=== PATIENT | male | born 2000 | race Caucasian/White ===

== ENCOUNTER 2022-02-11 13:08 | Emergency (ER) | payer MEDICAID ==
[2022-02-11] MEDS ORDERED: Sodium Chloride 0.9% 1000 ML 1,000 ML IV STA ×2 (13:38→14:46)
[2022-02-11] MEDS ORDERED: Zofran 4 MG/2 ML VIAL IV ONE (13:38)
[2022-02-11] MEDS ORDERED: Zofran 4 MG/2 ML VIAL ONE (13:41)
[2022-02-11] MEDS ORDERED: Sodium Chloride 0.9% 1000 ML 1,000 ML ONE ×2 (13:41→15:16)
[2022-02-11 13:51] LABS: Appearance CLEAR (CLEAR); Bilirubin NEGATIVE (NEGATIVE); Dipstick done @ ? MAIN LAB; Glucose NEGATIVE (NEGATIVE); Hyaline Casts 0-2 /LPF (0-2); Ketones MODERATE-40 (NEGATIVE); Nitrite NEGATIVE (NEGATIVE); Ph 8.5 (5-6); Protein,Urine Dip NEGATIVE (Negative); RBC 0-2 /HPF (0-2); RBC TRACE-INTACT Ery/ul (0-5); Urobilinogen 2 mg/dL (0-1); WBC 0-2 /HPF (0-5)
[2022-02-11 13:52] LABS: Urine Cultured Indicated? NO
[2022-02-11 13:52] LABS: Absolute Neutrophil Ct (ANC) 6.71 x10^3/uL (1.4-6.9); Basophil (Absolute #) 0.06 x10^3/uL (0-0.4); Eosinophil % 0.4 % (0.00-5.0); Eosinophil (Absolute #) 0.04 x10^3/uL (0-0.5); Hematocrit 50.6 % (42-50); Hemoglobin 18.2 g/dL (12.5-18.0); Lymphocyte (Absolute #) 2.92 x10^3/uL (1.0-4.6); Lymphocytes % 28.5 % (24.0-44.0); Mean Cell Volume 89.7 fL (78-100); Mean Corpuscular Hemoglobin 32.3 pg (26-32); Mean Platelet Volume 10.6 fL (7.5-11.0); Monocyte (Absolute #) 0.51 x10^3/uL (0.0-1.3); Neutrophil % 65.3 % (36.0-66.0); Platelet Count 284 x10^3/uL (150-450); Red Blood Count 5.64 x10^6/uL (4.1-5.6); Red Cell Distribution Width 12.7 % (11.5-14.0); White Blood Count 10.3 x10^3/uL (4.0-10.5)
[2022-02-11 13:57] LABS: ALBUMIN 5.1 g/dL (3.5-5.0); ALKALINE PHOSPHATASE 66 U/L (38-126); ANION GAP 16.7 MEQ/L (5-15); BLOOD UREA NITROGEN 11 mg/dL (9-20); CHLORIDE 104 mmol/L (98-107); Carbon Dioxide 24 mmol/L (22-30); Creatinine 1 0.96 mg/dL (0.66-1.25); EST GLOMERULAR FILTRATION RATE > 60.0 ML/MIN; Glucose 107 mg/dL (74-106); LIPASE 76 U/L (23-300); MAGNESIUM 2.1 mg/dL (1.6-2.3); Potassium 4.7 mmol/L (3.5-5.1); SGOT/AST 25 U/L (17-59); SGPT/ALT 15 U/L (0-50); SODIUM 140 mmol/L (137-145); Total Protein 7.9 g/dL (6.3-8.2)
--- NOTE | 2022-02-11 14:24 | XRAY ---
Exam: Acute abdominal series from 02/11/2022. Comparison: [None.] Indication: 22-year-old male with vomiting, diarrhea, and weakness 3 days. Findings: Upright PA chest film reveals a normal heart size and contour. The alberto and mediastinal structures appear unremarkable. The lungs are well expanded and appear clear. The pulmonary vascularity is normal. No pneumothorax or pleural effusion is seen. Very slight convexity of the mid thoracic spine toward the right is seen. No acute osseous process is seen. 2 supine images and 2 upright images of the abdomen were obtained. The bowel gas pattern appears unremarkable. A few nonspecific air-fluid levels are seen within the pelvic midline. Gas is seen to the level of the lower pelvic midline. There is no free intraperitoneal air. There is a 2.6 mm round calcification overlying the medial aspect of the lower pole of the right kidney which may represent a renal stone. A couple tiny calcifications are seen within the lower left pelvis which probably represent phleboliths. There is a slight rotary component of the mid lumbar spine toward the left centered at L3. No acute osseous process is seen. Impression: 1. No acute cardiopulmonary disease is seen. 2. Nonspecific bowel gas pattern. No findings to suggest bowel obstruction or free intraperitoneal air is seen. 3. 2.5 mm round calcification projecting over lower pole of the right kidney which may represent a renal stone. 4. Slight S-shaped convexity of the thoracolumbar spine, as discussed above.
[2022-02-11] MEDS ORDERED: TORAdol 30 mg Injection IV ONE (15:26)
[2022-02-11] MEDS ORDERED: TORAdol 30 mg Injection ONE (15:32)
[2022-02-11 15:40] LABS: INFLUENZA A NEGATIVE (NEGATIVE); INFLUENZA B NEGATIVE (NEGATIVE); RESPIRATORY SYNCTIAL VIRUS NEGATIVE (Negative); SARS-CoV-2 Xpert Express NEGATIVE (NEGATIVE)
[2022-02-11 16:06] VITALS: BP 148/61
[2022-02-11] MEDS ORDERED: MORPHINE SULFATE 4 MG INJ ONE (16:16)
--- NOTE | 2022-02-11 16:43 | ERPHSYRPT ---
- History of Present Illness Time Seen by Provider: 02/11/22 13:37 Source: patient Exam Limitations: no limitations Patient Subjective Stated Complaint: pt here for multi cos, states he feels numb all over, n/v/d for 3 days now. loose stools. headache,chills Triage Nursing Assessment: pt alert, resp easy,face mask in place, no cough,skin w/d/p. no edema noted , abd flat Physician History: 22-year-old male presented to the ER with chief complaint of flulike symptoms. Patient reports having headache, subjective feeling of fever chills, off and on nonproductive cough and vomiting/diarrhea with occasional abdominal cramping for the last 3 days. He is not able to hold much down. He has been tested twice at home for COVID-19 and is negative. Feels weak fatigued tired and dehydrated. Also reports having intermittent cramping in the arms/hands and legs with feeling of numbness bilaterally which comes and goes and is more after episode of vomiting or diarrhea. No focal weakness. Because of repeated coughing having some chest soreness. Timing/Duration: day(s) (3), intermittent, gradual onset, worse Severity: moderate Modifying Factors: Worsens With: eating Associated Symptoms: nausea, vomiting, abdominal pain, chills, fever, headaches, loss of appetite, malaise, weakness Allergies/Adverse Reactions: No Known Drug Allergies Allergy (Unverified 02/11/22 13:19) Hx Tetanus, Diphtheria Vaccination/Date Given: No Hx Influenza Vaccination/Date Given: No Hx Pneumococcal Vaccination/Date Given: No Immunizations Up to Date: Yes Travel Risk - International Travel Have you traveled outside of the country in past 3 weeks: No - Coronavirus Screening Are you exhibiting any of the following symptoms?: Yes Symptoms: Cough: New Onset, Shortness of Breath, Vomiting/Diarrhea, Headaches/Body Aches/Fatigue - Vaccine Status Have you recieved a Covid-19 vaccination: No - Review of Systems Constitutional: Fever, Chills, Fatigue, Weakness Eyes: No Symptoms Ears, Nose, & Throat: No Symptoms Respiratory: Cough Cardiac: Chest Pain Abdominal/Gastrointestinal: Abdominal Pain, Nausea, Vomiting, Diarrhea Genitourinary Symptoms: No Symptoms Musculoskeletal: Myalgias Skin: No Symptoms Neurological: Headache Psychological: No Symptoms Endocrine: No Symptoms Hematologic/Lymphatic: No Symptoms Immunological/Allergic: No Symptoms - Past Medical History Pertinent Past Medical History: No - Past Surgical History Past Surgical History: No - Social History Smoking Status: Current every day smoker Exposure to second hand smoke: Yes Drug Use: marijuana Patient Lives Alone: Yes - Nursing Vital Signs Nursing Vital Signs: Initial Vital Signs Temperature 97.8 F 02/11/22 13:13 Pulse Rate 81 02/11/22 13:13 Respiratory Rate 18 02/11/22 13:13 Blood Pressure 151/79 02/11/22 13:13 O2 Sat by Pulse Oximetry 97 02/11/22 13:13 Pain Scale Pain Intensity 0 - Physical Exam General Appearance: no apparent distress, alert, anxiety Eye Exam: PERRL/EOMI, eyes nml inspection Ears, Nose, Throat Exam: normal ENT inspection, TMs normal, pharynx normal, mo ist mucous membranes Neck Exam: normal inspection, non-tender, supple, full range of motion Respiratory Exam: normal breath sounds, lungs clear Cardiovascular Exam: regular rate/rhythm, normal heart sounds Gastrointestinal/Abdomen Exam: soft, normal bowel sounds, No tenderness Back Exam: normal inspection, normal range of motion Extremity Exam: normal inspection, normal range of motion, pelvis stable Neurologic Exam: alert, oriented x 3, cooperative, supervisor partial denture department II-XII nml as tested, nml cerebellar function, nml station & gait, sensation nml, No normal mood/affect (Anxious), No motor deficits SpO2 Interpretation: normal SpO2: 100 O2 Delivery: Room Air - Course EKG Interpreted by Me: RATE ([id number]), Sinus Simon, NORMAL AXIS, NORMAL INTERVALS, NORMAL QRS Ordered Tests: Active Orders 24 hr Category Date Time Status IV Insertion STAT Care 02/11/22 13:38 Completed NPO (ED) STAT Care 02/11/22 13:38 Completed OBSTR/ACUTE ABDOMEN SERIES Stat Exams 02/11/22 13:38 Completed CBC W DIFF Stat Lab 02/11/22 13:46 Completed CMP Stat Lab 02/11/22 13:40 Completed LIPASE Stat Lab 02/11/22 13:40 Completed Lactic Acid Stat Lab 02/11/22 13:40 Completed Lactic Acid Stat Lab 02/11/22 16:38 Received MAG [MAGNESIUM] Stat Lab 02/11/22 13:40 Completed TROPONIN Q4HX3 Lab 02/11/22 13:40 Completed UA W/RFX CULTURE Stat Lab 02/11/22 13:40 Completed Medication Summary Discontinued Medications Generic Name Dose Route Start Last Admin Trade Name Zoran PRN Reason Stop Dose Admin Sodium Chloride 1,000 mls @ 999 mls/hr 02/11/22 13:38 02/11/22 16:50 Sodium Chloride 0.9% 1000 Ml IV 02/11/22 14:38 Infused .Q1H1M STA Infusion Sodium Chloride Confirm 02/11/22 13:41 Sodium Chloride 0.9% 1000 Ml Administered 02/11/22 13:42 Dose 1,000 mls @ ud .ROUTE .STK-MED ONE Sodium Chloride 1,000 mls @ 999 mls/hr 02/11/22 14:46 02/11/22 16:41 Sodium Chloride 0.9% 1000 Ml IV 02/11/22 15:46 Infused .Q1H1M STA Infusion Sodium Chloride Confirm 02/11/22 15:16 Sodium Chloride 0.9% 1000 Ml Administered 02/11/22 15:17 Dose 1,000 mls @ ud .ROUTE .STK-MED ONE Ketorolac Tromethamine 30 mg 02/11/22 15:26 02/11/22 15:35 Ketorolac Tromethamine 30 Mg/Ml Inj IV 02/11/22 15:27 30 mg STAT ONE Administration Ketorolac Tromethamine Confirm 02/11/22 15:32 Ketorolac Tromethamine 30 Mg/Ml Inj Administered 02/11/22 15:33 Dose 30 mg .ROUTE .STK-MED ONE Morphine Sulfate Confirm 02/11/22 16:16 Morphine Sulfate 4 Mg/Ml Injection Administered 02/11/22 16:17 Dose 4 mg .ROUTE .STK-MED ONE Ondansetron HCl 4 mg 02/11/22 13:38 02/11/22 13:45 Ondansetron Hcl 4 Mg/2 Ml Vial IV 02/11/22 13:39 4 mg STAT ONE Administration Ondansetron HCl Confirm 02/11/22 13:41 Ondansetron Hcl 4 Mg/2 Ml Vial Administered 02/11/22 13:42 Dose 4 mg .ROUTE .STK-MED ONE Lab/Rad Data: Laboratory Result Diagrams 02/11/22 13:46 02/11/22 13:40 Laboratory Results 02/11/22 02/11/22 02/11/22 Range/Units Unknown 13:46 13:40 WBC 10.3 (4.0-10.5) x10^3/uL RBC 5.64 H (4.1-5.6) x10^6/uL Hgb 18.2 H (12.5-18.0) g/dL Hct 50.6 H (42-50) % MCV 89.7 (78-100) fL MCH 32.3 H (26-32) pg MCHC 36.0 (32-36) g/dL RDW 12.7 (11.5-14.0) % Plt Count 284 (150-450) x10^3/uL MPV 10.6 (7.5-11.0) fL Gran % 65.3 (36.0-66.0) % Immature Gran % (Auto) 0.2 (0.00-0.4) % Nucleat RBC Rel Count 0.0 (0.00-0.1) % Eos # (Auto) 0.04 (0-0.5) x10^3/uL Immature Gran # (Auto) 0.02 (0.00-0.03) x10^3u/L Absolute Lymphs (auto) 2.92 (1.0-4.6) x10^3/uL Absolute Monos (auto) 0.51 (0.0-1.3) x10^3/uL Absolute Nucleated RBC 0.00 (0.00-0.01) x10^3u/L Lymphocytes % 28.5 (24.0-44.0) % Monocytes % 5.0 (0.0-12.0) % Eosinophils % 0.4 (0.00-5.0) % Basophils % 0.6 (0.0-0.4) % Absolute Granulocytes 6.71 (1.4-6.9) x10^3/uL Basophils # 0.06 (0-0.4) x10^3/uL Sodium (137-145) mmol/L Potassium (3.5-5.1) mmol/L Chloride (98-107) mmol/L Carbon Dioxide (22-30) mmol/L Anion Gap (5-15) MEQ/L BUN (9-20) mg/dL Creatinine (0.66-1.25) mg/dL Estimated GFR ML/MIN Glucose (74-106) mg/dL Lactic Acid (0.4-2.0) Calcium (8.4-10.2) mg/dL Magnesium (1.6-2.3) mg/dL Total Bilirubin (0.2-1.3) mg/dL AST (17-59) U/L ALT (0-50) U/L Alkaline Phosphatase (38-126) U/L Troponin I < 0.012 (0.000-0.034) ng/mL Serum Total Protein (6.3-8.2) g/dL Albumin (3.5-5.0) g/dL Lipase (23-300) U/L Urinalys Dipstick Clnc Urine Color (YELLOW) Urine Appearance (CLEAR) Urine pH (5-6) Ur Specific [place] (1.005-1.025) POC Urine Protein Conf (Negative) Urine Ketones (NEGATIVE) Urine Nitrite (NEGATIVE) Urine Bilirubin (NEGATIVE) Urine Urobilinogen (0-1) mg/dL Urine Leukocytes (NEGATIVE) Urine WBC (Auto) (0-5) /HPF Urine RBC (Auto) (0-2) /HPF U Hyaline Cast (Auto) (0-2) /LPF U Epithel Cells (Auto) Urine Bacteria (Auto) Urine RBC (0-5) [place]/ul Ur Culture Indicated? Urine Glucose (NEGATIVE) mg/dL Influenza Type A Ag NEGATIVE (NEGATIVE) Influenza Type B Ag NEGATIVE (NEGATIVE) RSV (PCR) NEGATIVE (Negative) SARS-CoV-2 (PCR) NEGATIVE (NEGATIVE) 02/11/22 02/11/22 02/11/22 Range/Units 13:40 13:40 13:40 WBC (4.0-10.5) x10^3/uL RBC (4.1-5.6) x10^6/uL Hgb (12.5-18.0) g/dL Hct (42-50) % MCV (78-100) fL MCH (26-32) pg MCHC (32-36) g/dL RDW (11.5-14.0) % Plt Count (150-450) x10^3/uL MPV (7.5-11.0) fL Gran % (36.0-66.0) % Immature Gran % (Auto) (0.00-0.4) % Nucleat RBC Rel Count (0.00-0.1) % Eos # (Auto) (0-0.5) x10^3/uL Immature Gran # (Auto) (0.00-0.03) x10^3u/L Absolute Lymphs (auto) (1.0-4.6) x10^3/uL Absolute Monos (auto) (0.0-1.3) x10^3/uL Absolute Nucleated RBC (0.00-0.01) x10^3u/L Lymphocytes % (24.0-44.0) % Monocytes % (0.0-12.0) % Eosinophils % (0.00-5.0) % Basophils % (0.0-0.4) % Absolute Granulocytes (1.4-6.9) x10^3/uL Basophils # (0-0.4) x10^3/uL Sodium 140 (137-145) mmol/L Potassium 4.7 (3.5-5.1) mmol/L Chloride 104 (98-107) mmol/L Carbon Dioxide 24 (22-30) mmol/L Anion Gap 16.7 H (5-15) MEQ/L BUN 11 (9-20) mg/dL Creatinine 0.96 (0.66-1.25) mg/dL Estimated GFR > 60.0 ML/MIN Glucose 107 H (74-106) mg/dL Lactic Acid 2.4 H (0.4-2.0) Calcium 10.0 (8.4-10.2) mg/dL Magnesium 2.1 (1.6-2.3) mg/dL Total Bilirubin 1.90 H (0.2-1.3) mg/dL AST 25 (17-59) U/L ALT 15 (0-50) U/L Alkaline Phosphatase 66 (38-126) U/L Troponin I (0.000-0.034) ng/mL Serum Total Protein 7.9 (6.3-8.2) g/dL Albumin 5.1 H (3.5-5.0) g/dL Lipase 76 (23-300) U/L Urinalys Dipstick Clnc MAIN LAB Urine Color YELLOW (YELLOW) Urine Appearance CLEAR (CLEAR) Urine pH 8.5 (5-6) Ur Specific [place] 1.020 (1.005-1.025) POC Urine Protein Conf NEGATIVE (Negative) Urine Ketones MODERATE-40 (NEGATIVE) Urine Nitrite NEGATIVE (NEGATIVE) Urine Bilirubin NEGATIVE (NEGATIVE) Urine Urobilinogen 2 (0-1) mg/dL Urine Leukocytes NEGATIVE (NEGATIVE) Urine WBC (Auto) 0-2 (0-5) /HPF Urine RBC (Auto) 0-2 (0-2) /HPF U Hyaline Cast (Auto) 0-2 (0-2) /LPF U Epithel Cells (Auto) Not Reportable Urine Bacteria (Auto) Not Reportable Urine RBC TRACE-INTACT (0-5) [place]/ul Ur Culture Indicated? NO Urine Glucose NEGATIVE (NEGATIVE) mg/dL Influenza Type A Ag (NEGATIVE) Influenza Type B Ag (NEGATIVE) RSV (PCR) (Negative) SARS-CoV-2 (PCR) (NEGATIVE) - Progress Progress: improved Progress Note: 02/11/22 16:42 22-year-old is evaluated for nausea vomiting diarrhea with generalized weakness fatigue and fever chills. Patient is afebrile while in the ER. Given fluids and Toradol for symptomatic relief along with Zofran and patient is feeling much better on reevaluation. Work-up showed some element of dehydration and no obvious source of infection. X-rays negative for any acute findings as well. I believe patient has viral gastroenteritis and other symptoms of viral etiology/viral syndrome. COVID-19/flu/RSV is negative. Recommended supportive care and outpatient follow-up. Discussed signs symptoms of worsening needing return to ER which he seems understanding. Stable for discharge. Counseled pt/family regarding: lab results, diagnosis, need for follow-up, rad results - Departure Departure Disposition: Home Clinical Impression: Gastroenteritis, Viral syndrome Condition: Stable Critical Care Time: No Referrals: DOCTOR,NO FAMILY [Primary Care Provider] - Follow up/PCP as directed DARIN EVANS DO [ACTIVE STAFF] - Follow up/PCP as directed (1-2 days for reevaluation) Instructions: Viral Gastroenteritis, Adult (DC), Viral Syndrome (DC) Additional Instructions: Drink plenty of fluids. Take Tylenol as needed for pain/fever. Take Zofran as needed for nausea. Follow-up with primary care for reevaluation. Return to ER for worsening/intractable nausea vomiting/diarrhea/high-grade fever etc. Prescriptions: Ondansetron ODT 4 MG [Zofran Odt 4 mg] 1 ea PO QIDPRN PRN #7 tablet PRN Reason: n/v
[2022-02-11 16:59] VITALS: PULSE 76
[2022-02-11 23:18] VITALS: O2SAT 100
== END 2022-02-11 17:00 | disposition home or self-care (01) ==
LOC: ED 13:08
DX: A08.4 Viral intestinal infection, unspecified (principal); B34.9 Viral infection, unspecified; R51.9 Headache, unspecified; R50.9 Fever, unspecified; R05.1 Acute cough; R11.2 Nausea with vomiting, unspecified; R10.9 Unspecified abdominal pain; R53.1 Weakness; R53.83 Other fatigue; R25.2 Cramp and spasm; Z72.0 Tobacco use; Z28.310 Unvaccinated for COVID-19
CPT/HCPCS: 0241U; 36000; 36415; 74022; 80053; 81015; 83605; 83690; 83735; 84484; 85025; 96360; 96361; 96374; 96375; 99284; J1885; J2270; J2405